=== PATIENT | male | born 2000 | race Caucasian/White ===

== ENCOUNTER 2024-08-08 21:35 | Emergency (ER) | payer OTHER ==
[~2024-08-08] VITALS: Ht 182.9 cm; Wt 88.6 kg
[2024-08-08] MEDS ORDERED: Meclizine 25 MG TAB PO ONE (23:15)
[2024-08-09] MEDS ORDERED: ANTIVERT 25MG25 MG PO (00:48)
[2024-08-09 01:05] VITALS: BP 144/83; PULSE 69; TEMP 98.4
[2024-08-11] MEDS ORDERED: ANTIVERT 25MG25 MG PO (19:00)
[2024-08-11] MEDS ORDERED: AMBIEN 5MG TABLE5 MG PO (19:18)
[2024-08-11] MEDS ORDERED: ATIVAN 0.50.5 MG/TAB PO (20:39)
== END 2024-08-09 01:05 | disposition home or self-care (01) ==
LOC: COL.ER 21:35
DX: R11.0 Nausea (principal); F07.81 Postconcussional syndrome